=== PATIENT | male | born 1955 | race African-American/Black ===

== ENCOUNTER 2017-11-21 09:18 | Emergency (ER) | payer BC ==
--- OUTSIDE RECORDS SUMMARY | 2017-11-21 09:21 | XMS REPORT ---
:1955 [facility] [address] [place] [address] [place] [id number] Care Team Providers Name Role Phone Unavailable Unavailable Unavailable Payers Payer Name Policy Type Policy Number Effective Date Expiration Date Problems This patient has no known problems. Allergies, Adverse Reactions, Alerts Allergy Allergy Status Severity Reaction(s) Onset Inactive Treating Comments Name Type Date Date Clinician No Known DA Active U 2017-11 Allergies -12 00:00:0 0 No Known DA Active U 2017-04 Allergies -06 00:00:0 0 Medications This patient has no known medications.
[2017-11-21] MEDS ORDERED: KETOROLAC 30 MG/ML INJ ONE (09:53)
[2017-11-21] MEDS ORDERED: DIAZEPAM 10 MG/2 ML INJ SYRINGE ONE (10:42)
--- NOTE | 2017-11-21 11:18 | RAD REPORT ---
EXAM DESCRIPTION: RAD - Hip Right 2 View - 11/21/2017 11:06 am CLINICAL HISTORY: PAIN COMPARISON: Hip Right 2 View dated 11/05/2015 FINDINGS: Moderate osteoarthritis affects the right hip. No fracture, dislocation or evidence of AVN . IMPRESSION: Moderate right hip osteoarthritis.
--- NOTE | 2017-11-21 11:23 | RAD REPORT ---
EXAM DESCRIPTION: RAD - Lumbar Spine 3 Views - 11/21/2017 11:14 am CLINICAL HISTORY: LOWER BACK PAIN Radiculopathy COMPARISON: No comparisons FINDINGS: Vertebral body heights appear maintained. No compression fracture noted. Disc spaces are m aintained. Disc thinning at L5-S1 with minimal retrolisthesis. IMPRESSION: Mild lower lumbar spondylosis.
--- NOTE | 2017-11-21 11:33 | ER ---
Nurse's Notes [facility] Name: Aris Xiao Age: 62 yrs Sex: Male : 1955 Arrival Date: 11/21/2017 Time: 09:22 Bed 19 Private MD: Jeremy Willis H Diagnosis: Sciatica, right side Presentation: 11/21 09:25 Presenting complaint: Patient states: pain to R hip, started years ago. I got a cortisone shot but it didinjt help. i cant tell if its my back, hip, or leg. its like muscle spasms and sharp pains. Transition of care: patient was not received from another setting of care. Onset of symptoms was 1999. Risk Assessment: Do you want to hurt yourself or someone else? Patient reports no desire to harm self or others. Initial Sepsis Screen: Does the patient meet any 2 criteria? No. Patient's initial sepsis screen is negative. Does the patient have a suspected source of infection? No. Patient's initial sepsis screen is negative. Care prior to arrival: None. 09:25 Method Of Arrival: Wheelchair 09:25 Acuity: JUSTUS 4 Triage Assessment: :24 General: Appears in no apparent distress. uncomfortable, Behavior is calm, cooperative, appropriate for age. Pain: Complains of pain in low back area, right iliac crest and right hip Pain currently is 10 out of 10 on a pain scale. Historical: - Allergies: : No Known Allergies; - Home Meds: : Aciphex 20 mg Oral TbEC 1 tab once daily [Active]; aspirin 81 mg Oral chew 1 tab once rb1 daily [Active]; Flomax 0.4 mg Oral cp24 1 cap once daily [Active]; Iron CR Oral daily [Active]; OTC joint pain med daily [Active]; triamterene-hydrochlorothiazid 37.5-25 mg Oral cap once daily [Active]; - PMHx: :24 Anemia; BPH; Hypertension; hip pain- gets corisone injections; arethritis azam hips; ch - PSHx: : Cholecystectomy; ACL tear; :25 Knee surgery; rb1 - Immunization history:: Adult Immunizations up to date, Flu vaccine is not up to date. - Social history:: Smoking status: Patient/guardian denies using tobacco. - Ebola Screening: : Patient negative for fever greater than or equal to 101.5 degrees Fahrenheit, and additional compatible Ebola Virus Disease symptoms Patient denies exposure to infectious person Patient denies travel to an Ebola-affected area in the 21 days before illness onset No symptoms or risks identified at this time. Screenin:25 Abuse screen: Denies threats or abuse. Nutritional screening: No deficits noted. rb1 Tuberculosis screening: No symptoms or risk factors identified. Fall Risk None identified. Assessment: 09:25 General: Appears uncomfortable, Behavior is calm, cooperative, Denies fever. General: rb1 Reports Received Cortisone shot in right hip on Monday. Pain: Complains of pain in right low back Pain radiates to right hip Pain currently is 10 out of 10 on a pain scale. Neuro: Level of Consciousness is awake, alert, obeys commands, Oriented to person, place, time, situation. Cardiovascular: Capillary refill < 3 seconds is brisk in bilateral fingers. Respiratory: Airway is patent Respiratory effort is even, unlabored, Respiratory pattern is regular, symmetrical. GI: No signs and/or symptoms were reported involving the gastrointestinal system. : No signs and/or symptoms were reported regarding the genitourinary system. Derm: Skin is dry, Skin is normal, Skin temperature is warm. Musculoskeletal: Range of motion: intact in all extremities, Reports pain in right hip Pt. denies injury. 10:20 Reassessment: Patient appears in no apparent distress at this time. Patient and/or rb1 family updated on plan of care and expected duration. Pain level reassessed. Patient is alert, oriented x 3, equal unlabored respirations, skin warm/dry/pink. 10:37 Reassessment: Patient appears in no apparent distress at this time. No changes from rb1 previously documented assessment. 10:40 Reassessment: Pt. went to X-ray. rb1 11:40 Reassessment: Patient appears in no apparent distress at this time. Patient and/or rb1 family updated on plan of care and expected duration. Pain level reassessed. Patient is alert, oriented x 3, equal unlabored respirations, skin warm/dry/pink. Pt. is able to ambulate with less pain 4/10. Vital Signs: 09:24 BP 159 / 95; Pulse 61; Resp 15; Temp 98.2; Pulse Ox 99% on R/A; Weight 95.25 kg; Height ch 5 ft. 6 in. (167.64 cm); Pain 10/10; 10:21 BP 152 / 99; Pulse 51; Resp 17; Pulse Ox 99% on R/A; rb1 11:20 BP 155 / 96; Pulse 56; Resp 18; Pulse Ox 100% on R/A; rb1 12:05 BP 158 / 93; Pulse 53; Resp 17; Pulse Ox 99% on R/A; Pain 4/10; rb1 09:24 Body Mass Index 33.89 (95.25 kg, 167.64 cm) ED Course: 09:22 Patient arrived in ED. as 09:22 Jeremy Willis DO is Private Physician. as 09:24 Edilberto Helms PA is PHCP. cp 09:24 Loy Delarosa MD is Attending Physician. cp 09:24 Arm band placed on left wrist. ch 09:25 Patient has correct armband on for positive identification. Bed in low position. Call rb1 light in reach. Side rails up X 1. Pulse ox on. NIBP on. 09:26 Triage completed. ch 09:38 Shirley Sweeney, RN is Primary Nurse. rb1 10:41 Patient moved to radiology via wheelchair. jb2 11:06 X-ray completed. Patient tolerated procedure well. jb2 11:06 XRAY Hip RIGHT 2 view In Process Unspecified. EDMS 11:06 XRAY Lumbar Spine (3 Views) In Process Unspecified. EDMS 11:13 Patient moved back from radiology. jb2 11:32 Jeremy Willis DO is Referral Physician. cp 12:10 No provider procedures requiring assistance completed. Patient did not have IV access rb1 during this emergency room visit. Administered Medications: 09:50 Drug: TORadol 60 mg Route: IM; Site: right gluteus; rb1 10:15 Follow up: Response: No adverse reaction; Pain is decreased rb1 10:39 Drug: Diazepam 5 mg Route: IM; Site: left gluteus; rb1 11:00 Follow up: Response: No adverse reaction rb1 Outcome: 11:32 Discharge ordered by . cp 12:10 Patient left the ED. rb1 12:10 Discharged to home ambulatory, with family. rb1 12:10 Condition: stable 12:10 Discharge instructions given to patient, Instructed on discharge instructions, follow up and referral plans. medication usage, Demonstrated understanding of instructions, follow-up care, medications, Prescriptions given X 3. Signatures: Dispatcher [employer] Delores Damian, RN RN Jimmy Abdi Amelia as Page, Corey, PA PA cp Barber, Rebecca, RN RN rb1
--- NOTE | 2017-11-21 11:34 | EDPHYS ---
Physician Documentation [facility] Name: Aris Xiao Age: 62 yrs Sex: Male : 1955 Arrival Date: 11/21/2017 Time: 09:22 Bed 19 Private MD: Jeremy Willis H ED Physician Loy Delarosa HPI: 11/21 09:45 This 62 yrs old Black Male presents to ER via Wheelchair with complaints of Hip Pain. cp 09:45 The patient presents with pain pain. cp 09:45 The symptoms are located in the lumbar area and right low back. The pain radiates to cp the right hip and right leg. Onset: The symptoms/episode began/occurred gradually, and became worse yesterday. Associated signs and symptoms: Pertinent negatives: abdominal pain, chest pain, constipation, dysuria, fever, hematuria, incontinence, numbness, urinary retention, vomiting, weakness. Patient reports working yesterday and having increased pain to lower back and right hip today. denies injury and reports having recent cortisone injection. Historical: - Allergies: :24 No Known Allergies; ch - Home Meds: :25 Aciphex 20 mg Oral TbEC 1 tab once daily [Active]; aspirin 81 mg Oral chew 1 tab once rb1 daily [Active]; Flomax 0.4 mg Oral cp24 1 cap once daily [Active]; Iron CR Oral daily [Active]; OTC joint pain med daily [Active]; triamterene-hydrochlorothiazid 37.5-25 mg Oral cap once daily [Active]; - PMHx: 09:24 Anemia; BPH; Hypertension; hip pain- gets corisone injections; arethritis azam hips; ch - PSHx: :24 Cholecystectomy; ACL tear; 09:25 Knee surgery; rb1 - Immunization history:: Adult Immunizations up to date, Flu vaccine is not up to date. - Social history:: Smoking status: Patient/guardian denies using tobacco. - Ebola Screening: : Patient negative for fever greater than or equal to 101.5 degrees Fahrenheit, and additional compatible Ebola Virus Disease symptoms Patient denies exposure to infectious person Patient denies travel to an Ebola-affected area in the 21 days before illness onset No symptoms or risks identified at this time. ROS: 10:00 Constitutional: Negative for body aches, chills, fever, poor PO intake. cp 10:00 Eyes: Negative for injury, pain, redness, and discharge. cp 10:00 ENT: Negative for drainage from ear(s), ear pain, sore throat, difficulty swallowing, difficulty handling secretions. 10:00 Neck: Negative for pain with movement, pain at rest, stiffness, tenderness, bony tenderness. 10:00 Cardiovascular: Negative for chest pain, edema, palpitations. 10:00 Respiratory: Negative for cough, shortness of breath, wheezing. 10:00 Abdomen/GI: Negative for abdominal pain, nausea, vomiting, and diarrhea, constipation, black/tarry stool, rectal bleeding, bowel incontinence. 10:00 Back: Positive for pain at rest, pain with movement, of the lumbar area and right low back. 10:00 : Negative for urinary symptoms, burning with urination, difficulty urinating, bladder incontinence, testicular pain 10:00 MS/extremity: Positive for pain, of the right leg and right hip, Negative for injury or acute deformity, paresthesias. 10:00 Skin: Negative for cellulitis, rash. 10:00 Neuro: Negative for altered mental status, headache, numbness, tingling, weakness. 10:00 All other systems are negative. Exam: 10:05 Constitutional: The patient appears in no acute distress, alert, awake, cp non-diaphoretic, non-toxic, well developed, well nourished, uncomfortable. 10:05 Head/Face: Normocephalic, atraumatic. Eyes: Pupils equal round and reactive to light, cp extra-ocular motions intact. Lids and lashes normal. Conjunctiva and sclera are non-icteric and not injected. Cornea within normal limits. Periorbital areas with no swelling, redness, or edema. ENT: Nares patent. No nasal discharge, no septal abnormalities noted. Tympanic membranes are normal and external auditory canals are clear. Oropharynx with no redness, swelling, or masses, exudates, or evidence of obstruction, uvula midline. Mucous membranes moist. Neck: Trachea midline, no thyromegaly or masses palpated, and no cervical lymphadenopathy. Supple, full range of motion without nuchal rigidity, or vertebral point tenderness. No Meningismus. Chest/axilla: Normal chest wall appearance and motion. Nontender with no deformity. No lesions are appreciated. 10:05 Cardiovascular: Rate: normal, Rhythm: regular, Edema: is not appreciated, JVD: is not appreciated. 10:05 Respiratory: the patient does not display signs of respiratory distress, Respirations: normal, no use of accessory muscles, no retractions, no splinting, no tachypnea, labored breathing, is not present, Breath sounds: are clear throughout, no decreased breath sounds, no stridor, no wheezing. 10:05 Abdomen/GI: Inspection: abdomen appears normal, Bowel sounds: active, all quadrants, Palpation: abdomen is soft and non-tender, in all quadrants, rebound tenderness, is not appreciated, involuntary guarding, is not appreciated. 10:05 Back: pain, that is moderate, of the lumbar area and right low back, CVA tenderness, is absent, Straight leg raises: right lower extremity illicits pain. 10:05 Musculoskeletal/extremity: ROM: limited passive range of motion due to pain, in the right hip, Perfusion: the extremity is normally perfused throughout, Sensation intact. Joints: All joints are normal except the right hip displays painful range of motion, tenderness, Weight bearing: able to fully bear weight. 10:05 Skin: cellulitis, is not appreciated, no rash present. 10:05 Neuro: Orientation: to person, place \T\ time. Mentation: lucid, able to follow commands, Cerebellar function: is grossly normal, Motor: moves all fours, strength is normal, Sensation: is normal, Deep tendon reflexes are 2+ (normal) in the right patellar, right Achilles, left patellar and left Achilles. Vital Signs: 09:24 BP 159 / 95; Pulse 61; Resp 15; Temp 98.2; Pulse Ox 99% on R/A; Weight 95.25 kg; Height ch 5 ft. 6 in. (167.64 cm); Pain 10/10; 10:21 BP 152 / 99; Pulse 51; Resp 17; Pulse Ox 99% on R/A; rb1 11:20 BP 155 / 96; Pulse 56; Resp 18; Pulse Ox 100% on R/A; rb1 12:05 BP 158 / 93; Pulse 53; Resp 17; Pulse Ox 99% on R/A; Pain 4/10; rb1 09:24 Body Mass Index 33.89 (95.25 kg, 167.64 cm) MDM: 09:24 Patient medically screened. cp 10:00 Differential diagnosis: strain, sciatica, Herniated disc UTI, hip fracture, bursitis, cp strain. 11:31 Data reviewed: vital signs, nurses notes, radiologic studies, plain films. cp 11:31 Test interpretation: by ED physician or midlevel provider: plain radiologic studies. cp Counseling: I had a detailed discussion with the patient and/or guardian regarding: the historical points, exam findings, and any diagnostic results supporting the discharge/admit diagnosis, radiology results, the need for outpatient follow up, a family practitioner, to return to the emergency department if symptoms worsen or persist or if there are any questions or concerns that arise at home. Response to treatment: the patient's symptoms have markedly improved after treatment, VSS. Pain improved with meds. Xrays negative for acute findings, and as a result, I will discharge patient. 11/21 09:38 Order name: XRAY Hip RIGHT 2 view; Complete Time: 11:27 cp 11/21 11:28 Interpretation: Report reviewed. 11/21 09:38 Order name: XRAY Lumbar Spine (3 Views); Complete Time: 11:27 cp 11/21 11:28 Interpretation: Report reviewed. cp Administered Medications: 09:50 Drug: TORadol 60 mg Route: IM; Site: right gluteus; rb1 10:15 Follow up: Response: No adverse reaction; Pain is decreased rb1 10:39 Drug: Diazepam 5 mg Route: IM; Site: left gluteus; rb1 11:00 Follow up: Response: No adverse reaction rb1 Disposition: 11/22 07:24 Co-signature as Attending Physician, Loy Delarosa MD. rn Disposition: 11/21/17 11:32 Discharged to Home. Impression: Sciatica, right side. - Condition is Stable. - Discharge Instructions: Sciatica, Back Exercises, [id number]. - Prescriptions for Baclofen 10 mg Oral Tablet - take 1 tablet by ORAL route 3 times per day no driving while taking medication; 20 tablet. Tramadol 50 mg Oral Tablet - take 1 tablet by ORAL route every 8 hours as needed. no driving while taking medication; 20 tablet. Medrol (Avinash) 4 mg Oral Tablets, Dose Pack - take 1 tablet by ORAL route as directed - follow package instructions; 1 packet. - Medication Reconciliation Form, Thank You Letter, Antibiotic Education, Prescription Opioid Use form. - Follow up: eJremy Willis DO; When: 2 - 3 days; Reason: if symptoms continue. - Problem is new. - Symptoms have improved. Signatures: Dispatcher [employer] Delores Damian, RN RN Loy Padron MD MD rn Page, Corey, PA PA cp Barber, Rebecca, RN RN rb1 Corrections: (The following items were deleted from the chart) 11/21 12:10 11:32 11/21/2017 11:32 Discharged to Home. Impression: Sciatica, right side. Condition rb1 is Stable. Forms are Medication Reconciliation Form, Thank You Letter, Antibiotic Education, Prescription Opioid Use. Follow up: Jeremy Willis; When: 2 - 3 days; Reason: if symptoms continue. Problem is new. Symptoms have improved. cp
[2017-11-21] MEDS ORDERED: FOLIC ACID 5 MG/ML VIAL ONE (11:51)
[2017-11-21 15:29] VITALS: BP 152/99; TEMP 98.2; O2SAT 99
== END 2017-11-21 12:10 | disposition home or self-care (01) ==
LOC: ER 09:18
DX: M54.31 Sciatica, right side (principal); I10 Essential (primary) hypertension; Z79.82 Long term (current) use of aspirin
CPT/HCPCS: 72100; 96372; J3360

== ENCOUNTER → 2023-03-04 | Emergency (ER) | payer OTHER ==
--- NOTE | 2023-03-04 18:02 | RAD REPORT ---
EXAM DESCRIPTION: USExtremity Venous Uni Ltd03/04/2023 5:48 pm CLINICAL HISTORY: left leg pain COMPARISON: None FINDINGS: Left common femoral, superficial femoral, greater saphenous, popliteal and posterior tibi al veins are compressible and demonstrate augmentation. Doppler demonstrates good flow. 3.6 x 1.3 x 2 centimeter complex cystic mass posterior popliteal fossa Grayscale, color and spectral analysis performed on all vessels IMPRESSION: No evidence of deep venous thrombosis involving the left lower extremity. 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
--- NOTE | 2023-03-04 18:13 | EDPHYS ---
Physician Documentation [facility] Name: Aris Xiao Age: 68 yrs Sex: Male : 1955 Arrival Date: 03/04/2023 Time: 17:02 Bed 19 Private MD: ED Physician Michael Chavarria HPI: 03/04 18:25 This 68 yrs old Black Male presents to ER via Ambulatory with complaints of Post rt Surgical Pain, Knee Pain. 18:49 Patient is about 1 week out from a meniscus surgery on the left knee. He states that he rt said developed worsening swelling of the leg to the past few days, however, is most improved today. He did develop pain to the back of the knee today. He was sent by his orthopedist for rule out DVT. Denies other acute complaints, symptoms are mild in severity, no other aggravating elevating factors.. Historical: - Allergies: 17:16 No Known Allergies; as6 - PMHx: 17:16 Anemia; arethritis azam hips; BPH; hip pain- gets corisone injections; Hypertension; as6 - PSHx: 17:16 Cholecystectomy; knee; as6 - Immunization history:: Adult Immunizations up to date. - Social history:: Smoking status: Patient denies any tobacco usage or history of. ROS: 18:49 Constitutional: Negative for fever, chills, and weight loss, Cardiovascular: Negative rt for chest pain, palpitations, and edema, Respiratory: Negative for shortness of breath, cough, wheezing, and pleuritic chest pain, Abdomen/GI: Negative for abdominal pain, nausea, vomiting, diarrhea, and constipation, Skin: Negative for injury, rash, and discoloration, Neuro: Negative for headache, weakness, numbness, tingling, and seizure, Psych: Negative for depression, anxiety, suicide ideation, homicidal ideation, and hallucinations, 18:49 MS/extremity: Positive for pain, swelling, Exam: 18:49 Constitutional: This is a well developed, well nourished patient who is awake, alert, rt and in no acute distress. Head/Face: Normocephalic, atraumatic. Chest/axilla: Normal chest wall appearance and motion. Nontender with no deformity. No lesions are appreciated. Cardiovascular: Regular rate and rhythm with a normal S1 and S2. No gallops, murmurs, or rubs. Normal PMI, no JVD. No pulse deficits. Respiratory: Lungs have equal breath sounds bilaterally, clear to auscultation and percussion. No rales, rhonchi or wheezes noted. No increased work of breathing, no retractions or nasal flaring. Abdomen/GI: Soft, non-tender, with normal bowel sounds. No distension or tympany. No guarding or rebound. No evidence of tenderness throughout. Skin: Warm, dry with normal turgor. Normal color with no rashes, no lesions, and no evidence of cellulitis. Neuro: Awake and alert, GCS 15, oriented to person, place, time, and situation. Cranial nerves II-XII grossly intact. Motor strength 5/5 in all extremities. Sensory grossly intact. Cerebellar exam normal. Normal gait. Psych: Awake, alert, with orientation to person, place and time. Behavior, mood, and affect are within normal limits. 18:49 Musculoskeletal/extremity: Tenderness at left popliteal fossa, minimal swelling distally, pulses, motor, sensation intact, no warmth, erythema at surgical site. Vital Signs: 17:14 BP 140 / 91; Pulse 51; Resp 17 S; Pulse Ox 100% on R/A; Weight 81.65 kg (R); Height 5 as6 ft. 6 in. (R); Pain 3/10; 17:14 Body Mass Index 29.05 (81.65 kg, 167.64 cm) as6 17:14 Pain Scale: Adult as6 MDM: 17:17 Patient medically screened. rt 18:49 Differential diagnosis: DVT, Hammond's cyst, cellulitis. Data reviewed: vital signs, rt nurses notes, radiologic studies. Test considered but Not performed: Labs: No signs or symptoms to suggest infection, DVT ultrasound is negative, labs not indicated.. Counseling: I had a detailed discussion with the patient and/or guardian regarding the historical points, exam findings, and any diagnostic results supporting the discharge/admit diagnosis, radiology results, the need for outpatient follow up, to return to the emergency department if symptoms worsen or persist or if there are any questions or concerns that arise at home. 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
--- NOTE | 2023-03-04 18:13 | ER ---
Nurse's Notes [facility] Name: Aris Xiao Age: 68 yrs Sex: Male : 1955 Arrival Date: 03/04/2023 Time: 17:02 Bed 19 Private MD: Diagnosis: Synovial cyst of popliteal space [Hammond], left knee Presentation: 03/04 17:14 Chief complaint: Patient states: pt had left knee surgery on 02/24 and pt doctor is as6 concerned for blood clot. Coronavirus screen: At this time, the client does not indicate any symptoms associated with coronavirus-19. Ebola Screen: No symptoms or risks identified at this time. Initial Sepsis Screen: Does the patient meet any 2 criteria? No. Patient's initial sepsis screen is negative. Does the patient have a suspected source of infection? No. Patient's initial sepsis screen is negative. Risk Assessment: Do you want to hurt yourself or someone else? Patient reports no desire to harm self or others. Onset of symptoms was March 03, 2023. 17:14 Method Of Arrival: Ambulatory as6 17:14 Acuity: JUSTUS 3 as6 Historical: - Allergies: 17:16 No Known Allergies; as6 - PMHx: 17:16 Anemia; arethritis azam hips; BPH; hip pain- gets corisone injections; Hypertension; as6 - PSHx: 17:16 Cholecystectomy; knee; as6 - Immunization history:: Adult Immunizations up to date. - Social history:: Smoking status: Patient denies any tobacco usage or history of. Screenin:31 [facility] ED Fall Risk Assessment (Adult) History of falling in the last 3 months, cp4 including since admission No falls in past 3 months (0 pts) Confusion or Disorientation No (0 pts) Intoxicated or Sedated No (0 pts) Impaired Gait No (0 pts) Mobility Assist Device Used No (0 pt) Altered Elimination No (0 pt) Score/Fall Risk Level 0 - 2 = Low Risk Oriented to surroundings, Maintained a safe environment, Educated pt \T\ family on fall prevention, incl call for assistance when getting out of bed, Assessed \T\ reinforced patient's understanding of fall precautions, Hourly rounding (assess needs \T\ fall precautionary measures) done. Abuse screen: Denies threats or abuse. Nutritional screening: No deficits noted. Tuberculosis screening: No symptoms or risk factors identified. Assessment: 18:31 General: Appears in no apparent distress. Behavior is calm, cooperative, appropriate cp4 for age. Pain: Denies pain. Vital Signs: 17:14 BP 140 / 91; Pulse 51; Resp 17 S; Pulse Ox 100% on R/A; Weight 81.65 kg (R); Height 5 as6 ft. 6 in. (R); Pain 3/10; 17:14 Body Mass Index 29.05 (81.65 kg, 167.64 cm) as6 17:14 Pain Scale: Adult as6 ED Course: 17:05 Patient arrived in ED. rg4 17:08 Michael Chavarria MD is Attending Physician. rt 17:16 Triage completed. as6 17:16 Arm band placed on. as6 17:18 Delores Priest is Primary Nurse. cp4 17:50 Extremity Venous Uni Ltd US In Process Unspecified. EDMS 18:31 Bed in low position. Call light in reach. Side rails up X 1. Provided Education on: cp4 hammond cyst. 18:31 No provider procedures requiring assistance completed. Patient did not have IV access cp4 during this emergency room visit. Administered Medications: No medications were administered Medication: 18:31 VIS not applicable for this client. cp4 Outcome: 18:13 Discharge ordered by . rt 18:31 Discharged to home ambulatory, cp4 18:31 Condition: stable 18:31 Discharge instructions given to patient, Instructed on discharge instructions, follow up and referral plans. Demonstrated understanding of instructions, follow-up care, 18:33 Patient left the ED. cp4 Signatures: Dispatcher [employer] Constance Christensen rg4 Xu Rodrigues, RN RN as6 Michael Chavarria MD MD rt Delores Priest cp4
[2023-03-04 18:54] VITALS: BP 140/91; O2SAT 100
== END ==
LOC: ER 17:02
DX: M71.22 Synovial cyst of popliteal space [Baker], left knee (principal); G89.18 Other acute postprocedural pain
CPT/HCPCS: 93971

== ENCOUNTER 2024-01-18 12:01 | Emergency (ER) | payer OTHER ==
[2024-01-18] MEDS ORDERED: ONDANSETRON 4 MG/2 ML VIAL ONE (13:30)
[2024-01-18] MEDS ORDERED: KETOROLAC 30 MG/ML INJ ONE (13:31)
[2024-01-18] MEDS ORDERED: dexAMETHasone 10 MG/ML VIAL ONE (13:31)
[2024-01-18] MEDS ORDERED: DIAZEPAM 5 MG TABLET ONE (13:31)
[2024-01-18] MEDS ORDERED: FENTANYL CITR 100 MCG/2 ML ONE (13:31)
[2024-01-18] MEDS ORDERED: NA CHLORIDE 0.9% 1,000 ML ONE (13:32)
--- NOTE | 2024-01-18 14:29 | RAD REPORT ---
EXAMINATION: MRI LUMBAR SPINE WITHOUT CONTRAST CLINICAL INDICATION: PAIN TECHNIQUE: Multiplanar multisequence MR images were obtained of the lumbar spine WITHOUT intravenou s contrast. Unless otherwise specified, incidental findings do not require dedicated imaging follow-up. COMPARISON: No prior exam. FINDINGS: For purposes of this dictation, it is assumed that there are 5 non rib-bearing lumbar type vertebrae, and the most caudal fully segmented lumbar vertebra is labeled L5. ALIGNMENT: The lumbar spine has normal alignment. BONE: Vertebral bodies are normal in height. There is a normal marrow signal pattern. CORD: No abnormal signal in the cord. The conus medullaris terminates at a normal level. The nerve ro ots of the cauda equina appear normal. SOFT TISSUE: The included paraspinal soft tissues and retroperitoneal structures are grossly normal. EVALUATION OF THE INDIVIDUAL LEVELS: L1-2: Minimal posterior disc bulge. L2-3: Minimal posterior disc bulge. L3-4: Moderate posterior disc bulge with mild facet and ligamentum flavum hypertrophy. Central canal narrowing with lateral recess narrowing. Mild left-sided exit foraminal narrowing. L4-5: Mild to moderate posterior disc bulge is present. Mild facet and ligament hypertrophy. Mild dudley rowing of the left lateral recess. Mild narrowing of the left exit foramen. L5-S1: Mild posterior disc bulge is seen with small posterior annular tear. Mild facet and ligament f lavum hypertrophy is seen. Left lateral recess is mildly attenuated. Moderate left-sided exit foraminal narrowing. IMPRESSION: Moderate lower lumbar degenerative spondylosis. No severe canal stenosis or foraminal stenosis at any level.
--- NOTE | 2024-01-18 14:30 | RAD REPORT ---
EXAMINATION: XR LEFT HIP CLINICAL INDICATION: . PAIN TECHNIQUE: Multiple views of the left hip were obtained. COMPARISON: No prior exam. FINDINGS: No evidence of fracture or dislocation. Normal alignment. No radiographic evidence of AVN. Yryt-yn-vzpvgbzu osteoarthritis. IMPRESSION: Uibt-ra-kblegrbj left hip osteoarthritis.
--- NOTE | 2024-01-18 14:30 | RAD REPORT ---
EXAMINATION: XR PELVIS CLINICAL INDICATION: PAIN TECHNIQUE: AP Pelvis examination was obtained. COMPARISON: No prior exam. FINDINGS: No evidence of fracture or dislocation. Normal alignment. No radiographic evidence of AVN seen. Mild arthritic changes in both hips. IMPRESSION: Mild osteoarthritic changes bilateral hips.
--- NOTE | 2024-01-18 15:08 | ER ---
Nurse's Notes [facility] Name: Aris Xiao Age: 68 yrs Sex: Male : 1955 Arrival Date: 01/18/2024 Time: 12:01 Bed 15 Private MD: Diagnosis: Low back pain;Sciatica, left side;Unspecified symptoms and signs involving the musculoskeletal system;Osteoarthritis of hip, unspecified-Moderate;Radiculopathy, lumbar region;Spondylolysis, lumbar region Presentation: 01/17 12:12 Chief complaint: Patient states: he has left lower back pain that radiates to the left ap3 front groin area. patient currently rates his pain as a 10/10 on the pain scale. Coronavirus screen: At this time, the client does not indicate any symptoms associated with coronavirus-19. Ebola Screen: No symptoms or risks identified at this time. Initial Sepsis Screen: Does the patient meet any 2 criteria? No. Patient's initial sepsis screen is negative. Does the patient have a suspected source of infection? No. Patient's initial sepsis screen is negative. Risk Assessment: Do you want to hurt yourself or someone else? Patient reports no desire to harm self or others. Onset of symptoms was January 13, 2024. 12:12 Method Of Arrival: Ambulatory ap3 12:12 Acuity: JUSTUS 3 ap3 Triage Assessment: 12:14 General: Appears uncomfortable, Behavior is calm, cooperative, appropriate for age. ap3 Pain: Complains of pain in left low back Pain radiates to left lower quadrant Pain currently is 10 out of 10 on a pain scale. Pain began gradually. Neuro: Level of Consciousness is awake, alert, obeys commands, Oriented to person, place, time, situation, Appropriate for age. Cardiovascular: Patient's skin is warm and dry. Respiratory: Airway is patent Respiratory effort is even, unlabored, Respiratory pattern is regular, symmetrical. Historical: - Allergies: 12:13 No Known Allergies; ap3 - PMHx: 12:13 Anemia; arethritis azam hips; BPH; hip pain- gets corisone injections; Hypertension; ap3 - Immunization history:: Client reports receiving the 2nd dose of the Covid vaccine, Flu vaccine is up to date. - Infectious Disease History:: Denies. - Social history:: Smoking status: Patient denies any tobacco usage or history of. - Family history:: not pertinent. Screenin:14 Abuse screen: Denies threats or abuse. Nutritional screening: No deficits noted. ap3 Tuberculosis screening: No symptoms or risk factors identified. 13:30 [facility] ED Fall Risk Assessment (Adult) History of falling in the last 3 months, ph including since admission No falls in past 3 months (0 pts) Confusion or Disorientation No (0 pts) Intoxicated or Sedated No (0 pts) Impaired Gait No (0 pts) Mobility Assist Device Used No (0 pt) Altered Elimination No (0 pt) Score/Fall Risk Level 0 - 2 = Low Risk Oriented to surroundings, Maintained a safe environment, Hourly rounding (assess needs \T\ fall precautionary measures) done. Assessment: 13:00 General: Appears in no apparent distress. Behavior is calm, cooperative. Pain: ph Complains of pain in low back area. Neuro: Level of Consciousness is awake, alert, obeys commands, Oriented to person, place, time, situation. Cardiovascular: Capillary refill < 3 seconds in bilateral fingers Patient's skin is warm and dry. Respiratory: Airway is patent Respiratory effort is even, unlabored, Respiratory pattern is regular, symmetrical. Derm: Skin is pink, warm \T\ dry. Vital Signs: 12:12 BP 138 / 88; Pulse 50; Resp 18; Temp 97.7; Pulse Ox 100% ; Weight 79.38 kg; Height 5 ap3 ft. 5 in. ; Pain 10/10; 13:30 BP 131 / 78; Pulse 52; Resp 18; Pulse Ox 98% on R/A; ph 15:00 BP 128 / 68; Pulse 53; Resp 16; Pulse Ox 100% on R/A; ph 16:00 BP 130 / 72; Pulse 51; Resp 16; Temp 97.5; Pulse Ox 99% on R/A; ph 12:12 Body Mass Index 29.12 (79.38 kg, 165.1 cm) ap3 12:12 Pain Scale: Adult ap3 ED Course: 12:04 Patient arrived in ED. ra3 12:06 Edilberto Bond MD is Attending Physician. kanika 12:13 Triage completed. ap3 12:14 Arm band placed on right wrist. ap3 12:27 Shanna Patel RN is Primary Nurse. ph 13:30 Patient has correct armband on for positive identification. Placed in gown. Bed in low ph position. Call light in reach. 13:54 Radiology exam delayed due to pt in MRI. rs4 14:02 MRI Lumbar Spine wo Con In Process Unspecified. EDMS 14:26 Hip Left 2 View XRAY In Process Unspecified. EDMS 14:26 Pelvis XRAY In Process Unspecified. EDMS 15:00 Initial lab(s) drawn, by me, sent to lab. Inserted saline lock: 20 gauge in right ph antecubital area, using aseptic technique. Blood collected. Flushed with 10 mL NS. 15:07 Murali Doherty MD is Referral Physician. kanika 15:09 Kwesi Cowan MD is Referral Physician. [facility] 16:00 No provider procedures requiring assistance completed. IV discontinued, intact, ph bleeding controlled, No redness/swelling at site. Pressure dressing applied. Administered Medications: 13:45 Drug: Diazepam PO 10 mg PO once Route: PO; ph 14:00 Follow up: Response: No adverse reaction ph 15:10 Drug: NS 0.9% IV 1000 ml IV at 1000 ml once; to be given as a bolus over 60 minutes ph Route: IV; Rate: 1000 ml; Site: right antecubital; 16:30 Follow up: Response: No adverse reaction; IV Status: Completed infusion; IV Intake: ph 1000ml 15:10 Drug: Ketorolac IVP 15 mg IVP once Route: IVP; Site: right antecubital; ph 15:30 Follow up: Response: No adverse reaction; Pain is decreased ph 15:10 Drug: Decadron - Dexamethasone IVP 10 mg IVP once Route: IVP; Site: right antecubital; ph 15:30 Follow up: Response: No adverse reaction ph 15:10 Drug: fentaNYL (PF) IVP 25 mcg IVP once Route: IVP; Site: right antecubital; ph 15:30 Follow up: Response: No adverse reaction; Pain is decreased ph 15:10 Drug: Ondansetron IVP 4 mg IVP once; over 2 minutes Route: IVP; Site: right antecubital;ph 15:30 Follow up: Response: No adverse reaction ph 16:48 Drug: fentaNYL (PF) IVP 25 mcg IVP once Route: IVP; Site: right antecubital; ph 16:50 Follow up: Response: No adverse reaction ph Medication: 12:14 VIS not applicable for this client. ap3 Intake: 16:30 IV: 1000ml; Total: 1000ml. ph Outcome: 15:08 Discharge ordered by . kanika 16:48 Patient left the ED. ph 16:48 Discharged to home ambulatory, with significant other, ph 16:48 Condition: good 16:48 Discharge instructions given to patient, significant other, Instructed on discharge instructions, follow up and referral plans. medication usage, Demonstrated understanding of instructions, follow-up care, medications, Prescriptions given X 4, Signatures: Dispatcher [employer] EDEdilberto Boone MD MD cha Hall, Patricia RN RN ph Love Coto RN RN Sulema Martinez4 Malathi Couch ra3
--- NOTE | 2024-01-18 15:08 | EDPHYS ---
Physician Documentation [facility] Name: Aris Xiao Age: 68 yrs Sex: Male : 1955 Arrival Date: 01/18/2024 Time: 12:01 Bed 15 Private MD: ED Physician Edilberto Bond HPI: 01/17 13:32 This 68 yrs old Black Male presents to ER via Ambulatory with complaints of Hip Pain - kanika Left. 13:32 The patient or guardian reports decreased range of motion, pain. sustained from lifting kanika or pulling, There is no obvious deformity, The patient is able to self ambulate. The complaints affect the left low back. Modifying factors: The symptoms are alleviated by remaining still, the symptoms are aggravated by nothing. Associated signs and symptoms: Pertinent positives: None. Severity of symptoms: At their worst the symptoms were mild, moderate, in the emergency department the symptoms are unchanged. The patient has experienced similar episodes in the past, several times. Historical: - Allergies: 12:13 No Known Allergies; ap3 - PMHx: 12:13 Anemia; arethritis azam hips; BPH; hip pain- gets corisone injections; Hypertension; ap3 - Immunization history:: Client reports receiving the 2nd dose of the Covid vaccine, Flu vaccine is up to date. - Infectious Disease History:: Denies. - Social history:: Smoking status: Patient denies any tobacco usage or history of. - Family history:: not pertinent. ROS: 13:32 Constitutional: Negative for fever, chills, and weight loss, Eyes: Negative for injury, kanika pain, redness, and discharge, ENT: Negative for injury, pain, and discharge, Neck: Negative for injury, pain, and swelling, Cardiovascular: Negative for chest pain, palpitations, and edema, Respiratory: Negative for shortness of breath, cough, wheezing, and pleuritic chest pain, Abdomen/GI: Negative for abdominal pain, nausea, vomiting, diarrhea, and constipation, : Negative for injury, bleeding, discharge, and swelling, MS/Extremity: Negative for injury and deformity, Skin: Negative for injury, rash, and discoloration, Neuro: Negative for headache, weakness, numbness, tingling, and seizure, Psych: Negative for depression, anxiety, suicide ideation, homicidal ideation, and hallucinations, Allergy/Immunology: Negative for hives, rash, and allergies, Endocrine: Negative for neck swelling, polydipsia, polyuria, polyphagia, and marked weight changes, Hematologic/Lymphatic: Negative for swollen nodes, abnormal bleeding, and unusual bruising, 13:32 Back: Positive for decreased range of motion, radiated pain, of the left low back, Exam: 13:32 Constitutional: This is a well developed, well nourished patient who is awake, alert, kanika and in no acute distress. Head/Face: Normocephalic, atraumatic. Eyes: Pupils equal round and reactive to light, extra-ocular motions intact. Lids and lashes normal. Conjunctiva and sclera are non-icteric and not injected. Cornea within normal limits. Periorbital areas with no swelling, redness, or edema. ENT: Nares patent. No nasal discharge, no septal abnormalities noted. Tympanic membranes are normal and external auditory canals are clear. Oropharynx with no redness, swelling, or masses, exudates, or evidence of obstruction, uvula midline. Mucous membranes moist. Neck: Trachea midline, no thyromegaly or masses palpated, and no cervical lymphadenopathy. Supple, full range of motion without nuchal rigidity, or vertebral point tenderness. No Meningismus. Chest/axilla: Normal chest wall appearance and motion. Nontender with no deformity. No lesions are appreciated. Cardiovascular: Regular rate and rhythm with a normal S1 and S2. No gallops, murmurs, or rubs. Normal PMI, no JVD. No pulse deficits. Respiratory: Lungs have equal breath sounds bilaterally, clear to auscultation and percussion. No rales, rhonchi or wheezes noted. No increased work of breathing, no retractions or nasal flaring. Abdomen/GI: Soft, non-tender, with normal bowel sounds. No distension or tympany. No guarding or rebound. No evidence of tenderness throughout. Male : Normal genitalia with no discharge or lesions. Skin: Warm, dry with normal turgor. Normal color with no rashes, no lesions, and no evidence of cellulitis. Neuro: Awake and alert, GCS 15, oriented to person, place, time, and situation. Cranial nerves II-XII grossly intact. Motor strength 5/5 in all extremities. Sensory grossly intact. Cerebellar exam normal. Normal gait. Psych: Awake, alert, with orientation to person, place and time. Behavior, mood, and affect are within normal limits. 13:32 Back: pain, that is mild, that is moderate, ROM is painful, normal spinal alignment noted, CVA tenderness, is absent, vertebral tenderness, is not appreciated, muscle spasm, is appreciated in the left low back, left mid back, right mid back and right low back, Vital Signs: 12:12 BP 138 / 88; Pulse 50; Resp 18; Temp 97.7; Pulse Ox 100% ; Weight 79.38 kg; Height 5 ap3 ft. 5 in. ; Pain 10/10; 13:30 BP 131 / 78; Pulse 52; Resp 18; Pulse Ox 98% on R/A; ph 15:00 BP 128 / 68; Pulse 53; Resp 16; Pulse Ox 100% on R/A; ph 16:00 BP 130 / 72; Pulse 51; Resp 16; Temp 97.5; Pulse Ox 99% on R/A; ph 12:12 Body Mass Index 29.12 (79.38 kg, 165.1 cm) ap3 12:12 Pain Scale: Adult ap3 MDM: 12:06 Medical Screening Exam initiated kanika 13:35 Differential diagnosis: bursitis, arthritis, strain. Data reviewed: vital signs, nurses [facility] notes, lab test result(s), radiologic studies, MRI, plain films. Consideration of Admission/Observation Escalation of care including admission/observation considered. I considered the following discharge prescriptions or medication management in the emergency department Medications were administered in the Emergency Department. See MAR. Independent interpretation of the following test(s) in the Emergency Department X-Ray: My interpretation is left hip. Test considered but Not performed: Ultrasound no venous doppler. Historians other than the Patient: Spouse/Significant Other: well informed. Care significantly affected by the following chronic conditions: Diabetes, Hypertension, oa, anemia, bph. Counseling: I had a detailed discussion with the patient and/or guardian regarding the historical points, exam findings, and any diagnostic results supporting the discharge/admit diagnosis, lab results, radiology results, the need for outpatient follow up, for definitive care, a family practitioner, a neurologist. 01/17 13:12 Order name: [facility] 01/17 13:12 Order name: Comprehensive Metabolic Panel [facility] 01/17 13:12 Order name: Hip Left 2 View XRAY; Complete Time: 15:06 [facility] 01/17 13:12 Order name: Pelvis XRAY; Complete Time: 15:06 [facility] 01/17 13:12 Order name: MRI Lumbar Spine wo Con; Complete Time: 15:06 [facility] Administered Medications: 13:45 Drug: Diazepam PO 10 mg PO once Route: PO; ph 14:00 Follow up: Response: No adverse reaction ph 15:10 Drug: NS 0.9% IV 1000 ml IV at 1000 ml once; to be given as a bolus over 60 minutes ph Route: IV; Rate: 1000 ml; Site: right antecubital; 16:30 Follow up: Response: No adverse reaction; IV Status: Completed infusion; IV Intake: ph 1000ml 15:10 Drug: Ketorolac IVP 15 mg IVP once Route: IVP; Site: right antecubital; ph 15:30 Follow up: Response: No adverse reaction; Pain is decreased ph 15:10 Drug: Decadron - Dexamethasone IVP 10 mg IVP once Route: IVP; Site: right antecubital; ph 15:30 Follow up: Response: No adverse reaction ph 15:10 Drug: fentaNYL (PF) IVP 25 mcg IVP once Route: IVP; Site: right antecubital; ph 15:30 Follow up: Response: No adverse reaction; Pain is decreased ph 15:10 Drug: Ondansetron IVP 4 mg IVP once; over 2 minutes Route: IVP; Site: right antecubital;ph 15:30 Follow up: Response: No adverse reaction ph 16:48 Drug: fentaNYL (PF) IVP 25 mcg IVP once Route: IVP; Site: right antecubital; ph 16:50 Follow up: Response: No adverse reaction ph Disposition Summary: 01/18/24 15:08 Discharge Ordered Notes: Location: Home kanika Problem: new kanika Symptoms: have improved kanika Condition: Stable kanika Diagnosis - Low back pain kanika - Sciatica, left side kanika - Unspecified symptoms and signs involving the musculoskeletal system kanika - Osteoarthritis of hip, unspecified - Moderate kanika - Radiculopathy, lumbar region kanika - Spondylolysis, lumbar region kanika Followup: kanika - With: Private Physician - When: 2 - 3 days - Reason: Recheck today's complaints, Continuance of care, Re-evaluation by your physician Followup: kanika - With: Murali Doherty MD - When: 2 - 3 days - Reason: Recheck today's complaints, Re-evaluation by your physician Followup: kanika - With: Kwesi Cowan MD - When: 2 - 3 days - Reason: Recheck today's complaints, Re-evaluation by your physician Discharge Instructions: - Discharge Summary Sheet kanika - Acute Back Pain, Adult kanika - Lumbosacral Radiculopathy kanika - Musculoskeletal Pain kanika - Osteoarthritis kanika - Sciatica kanika - Back Injury Prevention, Txjv-kh-[id number] kanika - Chronic Back Pain, Ruup-xz-Rgnb kanika - Arthritis, Jnvm-rz-Hqyd kanika - Sciatica, [id number]-du-Yyft kanika - Radicular Pain [facility] Forms: - Medication Reconciliation Form [facility] - Antibiotic Education kanika - Prescription Opioid Use kanika - Patient Portal Instructions [facility] - Leadership Thank You Letter [facility] Prescriptions: - acetaminophen-codeine 300-30 mg Oral tablet - take 2 tablet ORAL route every 6 hours; 20 tablet; Refills: 0, Product [facility] Selection Permitted - dexamethasone 4 mg Oral tablet - take 1 tablet ORAL route daily; 5 tablet; Refills: 0, Product Selection kanika Permitted - diclofenac sodium 50 mg Oral tablet, delayed release (enteric coated) - take 1 tablet ORAL route 3 times per day; 30 tablet; Refills: 0, Product [facility] Selection Permitted - methocarbamol 750 mg Oral tablet - take 1 tablet ORAL route 4 times per day; 28 tablet; Refills: 0, Product [facility] Selection Permitted Signatures: Dispatcher [employer] EDMS Edilberto Bond MD MD cha Hall, Patricia, RN RN Love Griffin RN RN ap3 Corrections: (The following items were deleted from the chart) 12:09 12:09 Hip Left 2 View+RAD.RAD.BRZ ordered. EDMS EDMS 12:29 12:09 Pelvis+RAD.RAD.BRZ ordered. EDMS EDMS 13:13 13:13 Hip Left 2 View+RAD.RAD.BRZ ordered. EDMS EDMS 13:13 13:13 Pelvis+RAD.RAD.BRZ ordered. EDMS EDMS 13:13 13:13 Lumbar Spine Wo Con+MRI.RAD.BRZ ordered. EDMS EDMS
[2024-01-18 15:20] LABS: Absolute Lymphocytes (CBC) 2.2 K/uL (0.7-4.9); Absolute Monocytes 0.5 K/uL (0.1-1.3); Absolute Neutrophil 3.6 K/uL (1.8-8.0); Basophils % 0.7 % (0-1.3); Eosinophils % 0.8 % (0-4.4); Hematocrit 37.8 % (39.6-49.0); Lymphocytes % 33.8 % (15.3-44.8); MCH 30.2 pg (27.0-35.0); MCHC 34.3 g/dL (32.0-36.0); MCV 88.1 fL (80-100); MPV 8.1 fL (7.6-11.3); Monocytes % 8.2 % (3.3-12.3); Neutrophils % 56.5 % (41.7-73.7); Nucleated Red Blood Cells % 0.2 % (0-0); Platelets 189 thou/uL (152-406); RBC Red Blood Cell Count 4.29 M/uL (4.33-5.43); Red Cell Distribution Width 13.9 % (12.1-15.2)
[2024-01-18 15:39] LABS: ALT/SGPT 16 U/L (16-61); Albumin 3.3 g/dL (3.4-5.0); Albumin/Globulin Ratio 1.2 (1.1-1.8); Alkaline Phosphatase 52 U/L (45-117); Anion Gap 6.8 mEq/L (5.0-15.0); BUN Blood Urea Nitrogen 20 mg/dL (7-18); Bicarbonate 30 mEq/L (21-32); Bilirubin Total 0.6 mg/dL (0.2-1.0); Globulin 2.8 g/dL (2.3-3.5); Glomerular Filtration Rate 55 ml/min (=/>90); Glucose Level 92 mg/dL (74-106); Potassium 3.8 mEq/L (3.5-5.1); Protein, Total 6.1 g/dL (6.4-8.2); Sodium Level 140 mEq/L (136-145)
[2024-01-18 15:59] LABS: AST/SGOT < 10 U/L (15-37)
[2024-01-18 16:57] VITALS: BP 138/88; TEMP 97.7; O2SAT 100
== END 2024-01-18 16:48 | disposition home or self-care (01) ==
LOC: ER 12:01
DX: M16.12 Unilateral primary osteoarthritis, left hip (principal); M54.42 Lumbago with sciatica, left side; M54.16 Radiculopathy, lumbar region; M47.896 Other spondylosis, lumbar region; R29.91 Unspecified symptoms and signs involving the musculoskeletal system
CPT/HCPCS: 96361; 85025; 36415; 80053; 72170; 73502; 72148; 96375; 96374; 99284; J3010; J1100; J2405; J7030